=== PATIENT | male | born 1990 | race Caucasian/White ===

== ENCOUNTER 2016-07-12 14:29 | Emergency (ER) | payer MEDICAID ==
[~2016-07-12] VITALS: Ht 188 cm; Wt 76.5 kg
[2016-07-12 14:48] VITALS: Ht 188 cm; Wt 76.5 kg
[2016-07-12] MEDS ORDERED: IBUP-1542 PO (16:46)
--- NOTE | 2016-07-12 16:50 | ERD ---
ER Documentation Chief Complaint Date/Time DATE: 07/12/16 TIME: 16:49 Chief Complaint LT ARM INJURY AT WORK 2-MONTHS AGO, PAIN CONTINUES HPI This 25-year-old male injured his left wrist at work 2 months ago. Saw his primary doctor had normal x-ray. He complains of persistent pain on the dorsum of his left thumb. He denies restricted range of motion weakness, redness, or fevers or bleeding. ROS All systems reviewed and are negative except as per history of present illness. Medications Home Meds Active Scripts Ibuprofen* (Motrin*) 600 Mg Tab, 600 MG PO Q6, #20 TAB Prov:AMILCAR NICHOLS MD 07/12/16 PMhx/Soc Medical and Surgical Hx: pt denies Medical Hx, pt denies Surgical Hx Hx Alcohol Use: No Hx Tobacco Use: Yes Smoking Status: Current some day smoker Physical Exam Vitals Vital Signs Date Time Temp Pulse Resp B/P Pulse Ox O2 Delivery O2 Flow Rate FiO2 07/12/16 14:48 97.9 64 16 128/81 100 Physical Exam Const: [] Alert, [id number]. Head: Atraumatic Eyes: Normal Conjunctiva ENT: Normal External Ears, Nose and Mouth. Neck: Full range of motion..~ No meningismus. Resp: Clear to auscultation bilaterally Cardio: Regular rate and rhythm, no murmurs Abd: Soft, non tender, non distended. Normal bowel sounds Skin: No petechiae or rashes Back: No midline or flank tenderness Ext: No cyanosis, or edema. There is some tenderness on the dorsum of the left thumb extensor tendon at the wrist. There is no appreciable deformities, or erythema or effusion. Neur: Awake and alert Psych: Normal Mood and Affect Procedures/MDM X-ray left wrist 3V Interpreted by me: Scaphoid: [Normal] Bones: [No fracture] Joints: [No dislocation] Foreign body: [None]. Impression-normal left wrist x-ray Patient was placed in the left thumb spica splint. Patient was neurovascular intact after the splint. Patient appears to have left thumb extensor tendinitis without evidence of fracture, dislocation, tendon or neurologic deficit or bacterial infection. Patient was advised to use the splint for 2 weeks, see an orthopedist for further evaluation management otherwise advising occupational medicine given that it might be work-related. He should return for fevers, redness, new or worsening symptoms. Departure Diagnosis: Primary Impression: Tendonitis Condition: Stable Patient Instructions: Tendonitis Referrals: MINDA KERN MD,IN OL[facility] LIDIA LYLE Additional Instructions: x ray normal. use splint parA 2 SEMANAS. Va al grewal doctor/ specialista para mas evaluacon en el proximo semana. posiblemente necesita autorizado de grewal doctor primario para specialista. Regresa para fiebre, o mas o nueva simptomas. AMILCAR NICHOLS MD Jul 12, 2016 16:50
--- NOTE | 2016-07-12 18:11 | RADRPT ---
PROCEDURE: XR Left Wrist. CLINICAL INDICATION: Pain, injury TECHNIQUE: Three views of the left wrist were obtained. COMPARISON: No prior studies are available for comparison. FINDINGS: There is no acute fracture or dislocation. The carpal bones are intact. Alignment is maintained. T he soft tissues are unremarkable. RPTAT: EE IMPRESSION: No acute fracture or dislocation. .Andreia Heredia MD, MD Date Time Electronically viewed and signed by .Andreia Heredia MD, on 07/12/2016 17:00 .T/
== END 2016-07-12 17:02 | disposition home or self-care (01) ==
LOC: FTE 14:29
DX: M77.8 Other enthesopathies, not elsewhere classified (principal); F17.210 Nicotine dependence, cigarettes, uncomplicated
CPT/HCPCS: 29125; 73110; Z7502

== ENCOUNTER 2017-12-13 15:49 | Emergency (ER) | END 2017-12-13 18:07 | disposition home or self-care (01) ==

== ENCOUNTER 2017-12-16 13:32 | Emergency (ER) | END 2017-12-16 16:58 | disposition home or self-care (01) ==